=== PATIENT | male | born 1950 | race Caucasian/White ===

== ENCOUNTER 2018-09-24 09:28 | Day surgery (SDC) | payer MEDICARE, BC ==
[~2018-09-24 09:28] MED LIST: Midazolam 1 MG/ML 2 ML SDV ONE; Propofol 200 MG/20 ML SDV ONE
[2018-09-24] MEDS ORDERED: Sodium Chloride 0.9% 10 ML Syringe FLUSH PRN (09:30)
[2018-09-24] MEDS ORDERED: Lactated Ringers 1,000 ML IV SCH (09:30)
[2018-09-24] MEDS ORDERED: Propofol 200 MG/20 ML SDV ONE (10:20)
[2018-09-24] MEDS ORDERED: Midazolam 1 MG/ML 2 ML SDV ONE (10:20)
--- NOTE | 2018-09-24 10:47 | PCM.HPR ---
H & P Addendum review - H & P Addendum Review Date of Original H & P: 08/25/18 Date Reviewed: 09/24/18 Time Reviewed: 10:00 Patient was Examined: No Changes
--- NOTE | 2018-09-24 10:48 | PCM.OPNOTE ---
- General Post-Op/Procedure Note Date of Surgery/Procedure: 09/24/18 Operative Procedure(s): Colonoscopy with polypectomy Findings: Sig tics; rectal polyp Pre Op Diagnosis: Screening Post-Op Diagnosis: Same Anesthesia Technique: MAC Primary Surgeon: Nilton Monroy Anesthesia Provider: Bekah Lira Complications: None Condition: Good
--- NOTE | 2018-09-24 15:22 | OR ---
Date of Procedure: 09/24/2018 PREOPERATIVE DIAGNOSIS: Colon screening. POSTOPERATIVE DIAGNOSES: 1. Rectal polyp. 2. Sigmoid diverticulosis. PROCEDURE: Colonoscopy with polypectomy. ANESTHESIA: IV sedation. DESCRIPTION OF PROCEDURE: The patient was brought to the procedure room where he was placed on his left side and IV sedation administered. Digital rectal exam was performed which was normal. Colonoscope was inserted and advanced to the level of the cecum without difficulty. Cecal position was confirmed by identifying the appendiceal lumen and ileocecal valve. Prep was good and surfaces were well visualized. Upon withdrawing the scope, the ascending, transverse, and descending colon were normal in appearance. Sigmoid colon had several moderate-sized diverticula present. In the rectum, was an 8 mm pedunculated polyp located 10 cm from the anal verge that was removed with a cautery snare and retrieved in the polyp trap. Retroflexion was normal. Air was removed and the scope withdrawn. The patient tolerated the procedure well and returned to Recovery in stable condition. The patient will follow up with [facility] next week for review of pathology report. If the polyp is adenomatous, he should undergo repeat colonoscopy again in 3 years. If the polyp is hyperplastic, he can wait 10 years until his next colon screening. MCKINLEY GODDARD MD /[id number]
== END 2018-09-24 11:55 | disposition home or self-care (01) ==
LOC: LL.SDS 09:28
PROVIDERS: ATTEND Surgery
DX: Z12.11 Encounter for screening for malignant neoplasm of colon (principal); D12.8 Benign neoplasm of rectum; K57.30 Diverticulosis of large intestine without perforation or abscess without bleeding; E11.9 Type 2 diabetes mellitus without complications; E78.5 Hyperlipidemia, unspecified; K21.9 Gastro-esophageal reflux disease without esophagitis; E66.9 Obesity, unspecified; Z68.36 Body mass index [BMI] 36.0-36.9, adult; Z87.891 Personal history of nicotine dependence; Z79.4 Long term (current) use of insulin; Z79.899 Other long term (current) drug therapy
CPT/HCPCS: 00812; J2250; J2704; J7120

== ENCOUNTER 2022-05-02 07:57 | Day surgery (SDC) | payer MEDICARE, BC ==
[2022-05-02] MEDS ORDERED: Sodium Chloride 0.9% 10 ML Syringe FLUSH PRN (08:00)
[2022-05-02] MEDS: Lactated Ringers 1,000 ML IV SCH (08:27)
[2022-05-02] MEDS ORDERED: Midazolam 1 MG/ML 2 ML SDV ONE (08:37)
[2022-05-02] MEDS ORDERED: Propofol 200 MG/20 ML SDV ONE (08:38)
== END 2022-05-02 10:55 | disposition home or self-care (01) ==
LOC: LL.SDS 07:57
PROVIDERS: ATTEND Surgery
DX: Z12.11 Encounter for screening for malignant neoplasm of colon (principal); D12.0 Benign neoplasm of cecum; D12.3 Benign neoplasm of transverse colon; K57.30 Diverticulosis of large intestine without perforation or abscess without bleeding; E11.22 Type 2 diabetes mellitus with diabetic chronic kidney disease; N18.30 Chronic kidney disease, stage 3 unspecified; E78.1 Pure hyperglyceridemia; Z79.899 Other long term (current) drug therapy
CPT/HCPCS: 82947; J2250; J2704; J7120